=== PATIENT | male | born 1960 | race Caucasian/White ===

== ENCOUNTER 2017-05-14 09:36 | Day surgery (SDC) | payer MEDICAID ==
[~2017-05-14 09:36] MED LIST: ASPI-611 PO; METO50TA16 PO; OMEP40CA37 PO; VARD20TA31 PO
[2017-05-14] MEDS ORDERED: LIDOcaine 2% 5ml jelly ONE (09:46)
== END 2017-05-14 10:16 | disposition home or self-care (01) ==
LOC: WOUND CARE 09:36
PROVIDERS: ATTEND Surgery
DX: S81.801D Unspecified open wound, right lower leg, subsequent encounter (principal); I10 Essential (primary) hypertension; K21.9 Gastro-esophageal reflux disease without esophagitis; E11.9 Type 2 diabetes mellitus without complications; F17.200 Nicotine dependence, unspecified, uncomplicated; W50.1XXD Accidental kick by another person, subsequent encounter
CPT/HCPCS: 15271; A6222; Q4131

== ENCOUNTER 2017-05-22 09:31 | Outpatient (CLI) | payer MEDICAID | END 2017-05-22 09:55 | disposition home or self-care (01) | LOC: WOUND CARE 09:31 | PROVIDERS: ATTEND Surgery | DX: E11.622 Type 2 diabetes mellitus with other skin ulcer (principal); L97.811 Non-pressure chronic ulcer of other part of right lower leg limited to breakdown of skin; I10 Essential (primary) hypertension; K21.9 Gastro-esophageal reflux disease without esophagitis; F17.200 Nicotine dependence, unspecified, uncomplicated | CPT/HCPCS: 99211; A6209 ==

== ENCOUNTER 2017-05-29 09:29 | Outpatient (CLI) | payer MEDICAID | END 2017-05-29 10:40 | disposition home or self-care (01) | LOC: WOUND CARE 09:29 → EDSTATUS 09:30 → WOUND CARE 10:40 | PROVIDERS: ATTEND Surgery | DX: E11.622 Type 2 diabetes mellitus with other skin ulcer (principal); L97.811 Non-pressure chronic ulcer of other part of right lower leg limited to breakdown of skin; I10 Essential (primary) hypertension; K21.9 Gastro-esophageal reflux disease without esophagitis; F17.200 Nicotine dependence, unspecified, uncomplicated | CPT/HCPCS: 99215; A6021; A6206; A6212 ==

== ENCOUNTER 2017-06-05 09:32 | Day surgery (SDC) | payer MEDICAID ==
[2017-06-05] MEDS ORDERED: LIDOcaine 2% 5ml jelly ONE (10:36)
== END 2017-06-05 11:19 | disposition home or self-care (01) ==
LOC: WOUND CARE 09:32
PROVIDERS: ATTEND Surgery
DX: E11.622 Type 2 diabetes mellitus with other skin ulcer (principal); L97.811 Non-pressure chronic ulcer of other part of right lower leg limited to breakdown of skin; I10 Essential (primary) hypertension; K21.9 Gastro-esophageal reflux disease without esophagitis; F17.200 Nicotine dependence, unspecified, uncomplicated
CPT/HCPCS: 17250; A6021; A6206; A6212

== ENCOUNTER 2017-06-12 09:27 | Day surgery (SDC) | payer MEDICAID | END 2017-06-12 09:55 | disposition home or self-care (01) | LOC: WOUND CARE 09:27 | PROVIDERS: ATTEND Surgery | DX: E11.622 Type 2 diabetes mellitus with other skin ulcer (principal); L97.811 Non-pressure chronic ulcer of other part of right lower leg limited to breakdown of skin; I10 Essential (primary) hypertension; K21.9 Gastro-esophageal reflux disease without esophagitis; E03.9 Hypothyroidism, unspecified; F17.200 Nicotine dependence, unspecified, uncomplicated | CPT/HCPCS: 17250; A6021; A6212 ==

== ENCOUNTER 2017-06-19 09:32 | Day surgery (SDC) | payer MEDICAID ==
[2017-06-19] MEDS ORDERED: LIDOcaine 2% 5ml jelly ONE (09:45)
== END 2017-06-19 10:36 | disposition home or self-care (01) ==
LOC: WOUND CARE 09:32
PROVIDERS: ATTEND Surgery
DX: E11.622 Type 2 diabetes mellitus with other skin ulcer (principal); L97.811 Non-pressure chronic ulcer of other part of right lower leg limited to breakdown of skin; I10 Essential (primary) hypertension; K21.9 Gastro-esophageal reflux disease without esophagitis; E03.9 Hypothyroidism, unspecified; F17.200 Nicotine dependence, unspecified, uncomplicated
CPT/HCPCS: 17250; A6021; A6206; A6212

== ENCOUNTER 2017-07-03 09:25 | Day surgery (SDC) | payer MEDICAID ==
[2017-07-03] MEDS ORDERED: LIDOcaine 2% 5ml jelly ONE (10:03)
== END 2017-07-03 10:30 | disposition home or self-care (01) ==
LOC: WOUND CARE 09:25
PROVIDERS: ATTEND Surgery
DX: E11.622 Type 2 diabetes mellitus with other skin ulcer (principal); L97.811 Non-pressure chronic ulcer of other part of right lower leg limited to breakdown of skin; I10 Essential (primary) hypertension; K21.9 Gastro-esophageal reflux disease without esophagitis; E03.9 Hypothyroidism, unspecified; F17.200 Nicotine dependence, unspecified, uncomplicated
CPT/HCPCS: 17250; A6021; A6212; A6222

== ENCOUNTER 2020-03-20 10:16 | Day surgery (SDC) | payer BC ==
[2020-03-16 14:44] LABS: BASOPHILS % (AUTO) 0.4 % (0-1); EOSINOPHILS # (AUTO) 0.3 X10'3 (0-0.9); EOSINOPHILS % (AUTO) 2.9 % (0-6); LYMPHOCYTES # (AUTO) 2.1 X10'3 (1.1-4.8); LYMPHOCYTES % (AUTO) 22.4 % (21-51); MEAN CORPUSCULAR HEMOGLOBIN 29.7 PG (27.0-31.0); MEAN CORPUSCULAR HGB CONC 33.6 g/dL (33.0-36.5); MEAN CORPUSCULAR VOLUME 88.4 FL (78-98); MONOCYTES # (AUTO) 0.8 X10'3 (0-0.9); MONOCYTES % (AUTO) 8.2 % (2-12); NEUTROPHILS # (AUTO) 6.1 X10'3 (1.8-7.7); NEUTROPHILS % (AUTO) 66.1 % (42-75); PRE OP HEMATOCRIT 43.2 % (42.0-52.0); PRE OP HEMOGLOBIN 14.5 g/dL (14.0-17.9); PRE OP PLATELET COUNT 261 X10'3 (140-440); RED BLOOD COUNT 4.89 X10'6 (4.70-6.10)
[2020-03-16 14:57] LABS: ALBUMIN 3.7 G/DL (3.4-5.0); ALBUMIN/GLOBULIN RATIO 1.1 (1.1-1.5); ALKALINE PHOSPHATASE 60 IU/L (46-116); BLOOD UREA NITROGEN 19 MG/DL (7-18); BUN/CREATININE RATIO 15.1 (5.4-32.0); CALCIUM 8.3 MG/DL (8.5-10.1); CHLORIDE 105 MMOL/L (99-107); CREATININE 1.26 MG/DL (0.60-1.10); PRE OP ALT 26 U/L (30-65); PRE OP ANION GAP 5 (8-16); PRE OP AST 12 U/L (10-37); PRE OP BILIRUB, TOTAL 0.5 MG/DL (0.0-1.0); PRE OP GLUCOSE 98 MG/DL (70-104); PRE OP SODIUM 140 MMOL/L (135-145); TOTAL CARBON DIOXIDE 30.5 MMOL/L (24-32); eGFR 59 ML/MIN
[~2020-03-20] VITALS: Ht 180.3 cm; Wt 90.7 kg
[2020-03-20] VITALS (10 sets, daily range): BP systolic 126–152; BP diastolic 72–96
[~2020-03-20 10:16] MED LIST changes: +CHOL200016 PO; +DOCUMENT DATE & TIME OF BETA-BLOCKER PO ONE; +FLO0.4C PO; +HYDR-3972 PO; +IBUP-1985 PO; -METO50TA16 PO; +NEBI10TA2 PO; +OMEP-50 PO; -OMEP40CA37 PO; +cefazolin/dext.iso 2gm/50ml 50 ML IV ONE; +famotidine 20mg tablet PO ONE; +ringers solution, lacted 1,000 ML IV SCH; +vancomycin 1,500 MG in NS 300ml IV soln IV ONE
[2020-03-20] MEDS ORDERED: cloNIDine hcl/PF 100mcg/ml inj ONE (11:11)
[2020-03-20] MEDS ORDERED: sevoflurane 250ml liquid IH ONE (12:32)
[2020-03-20] MEDS ORDERED: fentaNYL/PF 50MCG/1 ML 2ML syringe ONE (12:38)
[2020-03-20] MEDS ORDERED: midazolam 2 mg/2 ml injection ONE (12:39)
[2020-03-20] MEDS ORDERED: rocuronium 10mg/ml inj IV ONE (13:16)
[2020-03-20] MEDS ORDERED: LIDOcaine 2% (20mg/ml) 5ml vial ONE (13:16)
[2020-03-20] MEDS ORDERED: propofol inj 20 ML IV ONE ×2 (13:16)
[2020-03-20] MEDS ORDERED: dexamethasone sod phosphate 4mg/ml inj. ONE (13:16)
[2020-03-20] MEDS ORDERED: ROPIVAcaine 0.5% (5mg/ml) 30ml vial ONE (13:16)
[2020-03-20] MEDS ORDERED: ePHEDrine 50MG/ML INJ. ONE (13:17)
[2020-03-20] MEDS ORDERED: ondansetron/PF 4mg/2ml inj ONE (13:18)
[2020-03-20] MEDS ORDERED: ringers solution, lacted 1,000 ML IV SCH (13:40)
[2020-03-20] MEDS ORDERED: ondansetron/PF 4mg/2ml inj IV PRN (13:40)
[2020-03-20] MEDS ORDERED: meperidine/PF 25mg/ml syringe IV PRN ×3 (13:40)
[2020-03-20] MEDS ORDERED: labetalol 20mg/4ml (5mg/ml) syringe IV PRN (13:40)
[2020-03-20] MEDS ORDERED: hydrALAZINE 20mg/ml inj. IV PRN (13:40)
[2020-03-20] MEDS ORDERED: acetaminophen 1,000mg/100ml IV 100 ML IV PRN (13:40)
[2020-03-20] MEDS ORDERED: morphine 4 MG/ML inj SYRINge IV PRN (13:40)
[2020-03-20] MEDS ORDERED: morphine 2 MG/ML inj. syringe IV PRN (13:40)
[2020-03-20] MEDS ORDERED: proCHLORperazine 10 MG/2 ml inj IV PRN (13:40)
[2020-03-20] MEDS ORDERED: neostigmine methylsulfate 1 MG/ML 10ml vial ONE (13:56)
[2020-03-20] MEDS ORDERED: glycopyrrolate 0.2mg/ml inj ONE (13:56)
--- NOTE | 2020-03-20 14:05 | NUR ---
Received from OR via BED, accompanied by Anesthesiologist DR LOUIE -- and report given by Anesthesiolgist. PATIENT A&OX4, DENIES PAIN, V/S WNL, NEUROVASCULAR CHECKS INTACT, 20G PIV RUE, SCD ON, LEFT ARM SPLINT CAST DRESSING CDI
--- NOTE | 2020-03-20 15:10 | NUR ---
PATIENT A&OX4, DENIES PAIN, V/S WNL, NEUROVASCULAR CHECKS INTACT, 20G PIV RUE D/C, SCD OFF, LEFT ARM SPLINT CAST DRESSING CDI , I HAVE REVIEWED D/C INSTRUCTIONS WITH PATIENT AND FAMILY AND THEY HAVE VERBALIZED UNDERSTANDING. PATIENT D/C HOME WITH ALL BELONGINGS AND FAMILY GAVE TRANSPORT HOME.
== END 2020-03-20 15:10 | disposition home or self-care (01) ==
LOC: PAS 10:16
PROVIDERS: ATTEND Orthopaedic Surgery
DX: S52.572A Other intraarticular fracture of lower end of left radius, initial encounter for closed fracture (principal); I10 Essential (primary) hypertension; G47.30 Sleep apnea, unspecified; N40.0 Benign prostatic hyperplasia without lower urinary tract symptoms; Z72.89 Other problems related to lifestyle; Z20.828 Contact with and (suspected) exposure to other viral communicable diseases; G89.18 Other acute postprocedural pain; Z79.899 Other long term (current) drug therapy; Z98.890 Other specified postprocedural states; Z79.82 Long term (current) use of aspirin; W19.XXXA Unspecified fall, initial encounter; Y93.89 Activity, other specified; Y92.89 Other specified places as the place of occurrence of the external cause; Y99.8 Other external cause status
CPT/HCPCS: 25609; 36415; 64417; 76942; 80053; 82948; 85025; 87635; 93005; A6222; C1713; C9803; J0735; J1100; J2001; J2175; J2250; J2405; J2704; J2710; J3010; J3370; J7040; A4618; A6449; A7000; J2795; J3490; J7120